=== PATIENT | female | born 1990 | race Caucasian/White ===

== ENCOUNTER → 2017-10-27 | Outpatient (REF) | payer SELFPAY ==
[2017-10-29 08:07] LABS: RUBEOLA IgG ANTIBODY 60.7 AU/mL (Immune >29.9)
[2017-10-29 08:07] LABS: MUMPS VIRUS IgG ANTIBODY <9.0 AU/mL (Immune >10.9)
[2017-10-29 10:29] LABS: RUBELLA IgG QUALITATIVE IMMUNE (IMMUNE)
== END ==
LOC: M LAB REF 16:42
DX: Z13.9 Encounter for screening, unspecified (principal)

== ENCOUNTER 2017-12-20 19:13 | Emergency (ER) | payer OTHER, MEDICAID ==
[2017-12-20] MEDS: ONDANSETRON 4MG/2ML VIAL (J2405) IV (19:45)
[2017-12-20] MEDS: NS 1,000 ML IV (19:45)
[2017-12-20] MEDS: MORPHINE 2 MG/ML 1ML SYRINGE (J2270) IV (19:45)
[2017-12-20 20:01] LABS: HEMATOCRIT 32.5 % (36.0-47.0); HEMOGLOBIN 9.6 g/dl (12.0-15.5); MEAN CORPUSCULAR HGB CONC 29.5 g/dl (32.0-36.5); MEAN CORPUSCULAR VOLUME 67.8 fl (80.0-96.0); PLATELET COUNT, AUTOMATED 477 10^3/uL (150-450); RED BLOOD COUNT 4.79 10^6/uL (4.00-5.40); WHITE BLOOD COUNT 14.9 10^3/uL (4.0-10.0)
[2017-12-20 20:06] LABS: BILIRUBIN, URINE MANUAL NEGATIVE (NEGATIVE); BLOOD URINE MANUAL RFX POSITIVE (NEGATIVE); GLUCOSE, URINE (UA) MANUAL NEGATIVE (NEGATIVE); KETONE, URINE MANUAL NEGATIVE (NEGATIVE); NITRITE, URINE MANUAL RFX NEGATIVE (NEGATIVE); PROTEIN, URINE MANUAL REFLEX 2+ mg/dL (NEGATIVE); SP GRAVITY,URINE MANUAL REFLEX 1.015 (1.002-1.035); UROBILINOGEN, URINE MANUAL NORMAL (NORMAL)
[2017-12-20 20:08] LABS: RBC, URINE TNTC /hpf (0-3)
[2017-12-20 20:09] LABS: BACTERIA, URINE SMALL AMOUNT; CONTROL LINE UCG INT CTR LINE PRESENT; HYALINE CAST, URINE NONE SEEN /lpf (0-1); MICROSCOPIC EXAM PERFORMED; MUCUS, URINE SMALL AMOUNT (NEGATIVE); SQUAMOUS EPITHELIAL CELL URINE SMALL AMOUNT /hpf (SMALL AMT); URINE PREG TEST NEGATIVE (NEGATIVE)
[2017-12-20 20:20] LABS: ANION GAP 6 MEQ/L (8-16); BLOOD UREA NITROGEN 11 MG/DL (7-18); CALCIUM LEVEL 8.6 MG/DL (8.5-10.1); CARBON DIOXIDE LEVEL 26 MEQ/L (21-32); CHLORIDE LEVEL 108 MEQ/L (98-107); CREATININE FOR GFR 0.61 MG/DL (0.55-1.30); GLOMERULAR FILTRATION RATE > 60.0 (>60); GLUCOSE, FASTING 78 MG/DL (70-100); POTASSIUM SERUM 4.1 MEQ/L (3.5-5.1); SODIUM LEVEL 140 MEQ/L (136-145)
[2017-12-20] MEDS: NORCO 5/325MG TABLET (BULK FOR ED) PO (21:23)
== END 2017-12-20 21:30 | disposition home or self-care (01) ==
LOC: M ED 19:13
DX: N39.0 Urinary tract infection, site not specified (principal); N93.8 Other specified abnormal uterine and vaginal bleeding; F17.210 Nicotine dependence, cigarettes, uncomplicated
CPT/HCPCS: J2405